=== PATIENT | female | born 1955 | race Caucasian/White ===

== ENCOUNTER 2019-10-23 09:37 | Emergency (ER) | payer OTHER ==
[~2019-10-23] VITALS: Ht 165.1 cm; Wt 61.7 kg
[~2019-10-23 09:37] MED LIST: FIORICET; PROTONIX
[2019-10-23] MEDS ORDERED: RIZATRIPTAN10 MG (10:04)
[2019-10-23] MEDS ORDERED: SYNTHROID75 MCG (10:04)
[2019-10-23] MEDS ORDERED: PROTONIX40 MG (10:04)
== END 2019-10-23 12:42 | disposition home or self-care (01) ==
LOC: ER 09:37
DX: S90.31XA Contusion of right foot, initial encounter (principal); W22.8XXA Striking against or struck by other objects, initial encounter; Y93.89 Activity, other specified; Y92.89 Other specified places as the place of occurrence of the external cause; Y99.8 Other external cause status

== ENCOUNTER 2020-01-26 14:18 | Inpatient (IN) | payer OTHER ==
[~2020-01-26] VITALS: Ht 165.1 cm; Wt 61.2 kg
[~2020-01-26 14:18] MED LIST changes: +PROTONIX40 MG; +RIZATRIPTAN10 MG; +SYNTHROID75 MCG
[2020-01-28] MEDS ORDERED: ZINC SULFATE220 M2 PO (14:52)
[2020-01-28] MEDS ORDERED: FAMOTIDINE20 MG PO (14:53)
[2020-01-28] MEDS ORDERED: CARAFATE1 GM PO (14:53)
[2020-01-28] MEDS ORDERED: DEXAMETHASONE4 MG PO (14:54)
[2020-01-28] MEDS ORDERED: MELATONIN5 M2 PO (14:54)
[2020-01-28] MEDS ORDERED: VITAMIN C500 M1 PO (14:54)
[2020-01-28] MEDS ORDERED: PROTONIX40 MG PO (14:56)
== END 2020-01-28 16:00 | disposition home or self-care (01) | DRG 314 ==
LOC: ER 14:18 → SEC-K 22:31
PROVIDERS: ADMIT Internal Medicine; ATTEND Internal Medicine
PROC: CB2YYZZ Tomographic (Tomo) Nuclear Medicine Imaging of Respiratory System using Other Radionuclide (ICD-10-PCS; principal; 2020-01-26)
PROC: 4A033R1 Measurement of Arterial Saturation, Peripheral, Percutaneous Approach (ICD-10-PCS; 2020-01-26)
PROC: 8E0ZXY6 Isolation (ICD-10-PCS; 2020-01-27)
PROC: 4A12X4Z Monitoring of Cardiac Electrical Activity, External Approach (ICD-10-PCS; 2020-01-28)
DX: I31.3 Pericardial effusion (noninflammatory) (principal); U07.1 COVID-19; R06.09 Other forms of dyspnea; K29.60 Other gastritis without bleeding; E03.8 Other specified hypothyroidism

== ENCOUNTER 2021-04-14 07:51 | Outpatient (CLI) | payer OTHER ==
[~2021-04-14 07:51] MED LIST changes: +CARAFATE1 GM PO; +DEXAMETHASONE4 MG PO; +FAMOTIDINE20 MG PO; +MELATONIN5 M2 PO; +PROTONIX40 MG PO; +VITAMIN C500 M1 PO; +ZINC SULFATE220 M2 PO
== END 2021-04-14 08:04 | disposition home or self-care (01) ==
LOC: TOM 07:51
DX: R10.13 Epigastric pain (principal); R10.10 Upper abdominal pain, unspecified